=== PATIENT | female | born 1985 | race Caucasian/White ===

== ENCOUNTER 2016-11-15 16:05 | Emergency (ER) | payer OTHER ==
[2016-11-15 16:35] VITALS: BP 152/84; PULSE 93; RESP 18; TEMP 98.4; O2SAT 98
[2016-11-15] MEDS ORDERED: ALBUTEROL 3 ML DEYVIAL IH ONE (16:49)
--- NOTE | 2016-11-15 16:53 | UCPHY ---
[id number]/01/17 16:38 HPI/ROS: CHIEF COMPLAINT: Cough, sore throat HISTORY OF PRESENT ILLNESS: 31-year-old female presents to Urgent Care by private vehicle complaining of cough and sore throat. She is approximately 19 weeks . She has had cold symptoms over last 5 days. She does not feel that she can get a big deep breath of air. She denies any other chest pain. No abdominal pain. No back pain. No known ill exposure or contact. She did get a flu shot this past fall. 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 She is concerned that she may have the flu. REVIEW OF SYSTEMS: Constitutional: No fever, no chills. Eyes: No double or blurry vision. ENT: sore throat. Respiratory: Cough, shortness of breath as above Cardiac: No chest pain. Gastrointestinal: No abdominal pain, vomiting or diarrhea. Genitourinary: No dysuria. Musculoskeletal: No neck or back pain. Skin: No rashes. Neurological: No headache. (Shabana Mendoza) Past Medical/Surgical History: 19 weeks (Shabana Mendoza) Social History: and lives in [place] (Shabana Mendoza) Physical Exam: General Appearance: Alert, no distress. 152/84, 98% on room air, afebrile and nontoxic-appearing. Eyes: Pupils equal and round. Extraocular motions are all intact. ENT: Mouth: Mucous membranes moist. Respiratory: Decreased breath sounds in the bases. No wheezing, rhonchi, or rales, lungs are clear to auscultation. Cardiovascular: Regular rate and rhythm. Gastrointestinal: Abdomen is soft and nontender, no masses, no rebound or guarding, bowel sounds normal. Neurological: Alert and oriented x 3, cranial nerves II through XII grossly intact Skin: Warm and dry, no rashes. Musculoskeletal: Nontender to palpate along the cervical, thoracic or lumbar spine. Neck is supple. Extremities: Full range of motion and no peripheral edema. Psychiatric: Patient is oriented X 3, there is no agitation. (Shabana Mendoza) Constitutional: Initial Vital Signs Temperature (C) 36.9 C 11/15/16 16:32 Heart Rate 93 11/15/16 16:32 Respiratory Rate 18 11/15/16 16:32 Blood Pressure 152/84 H 11/15/16 16:32 O2 Sat (%) 98 11/15/16 16:32 O2 Delivery Mode Room Air Allergies/Adverse Reactions: No Known Allergies Allergy (Unverified 11/15/16 16:32) Home Medications: Medication Instructions Recorded Albuterol [Proventil Inhaler HFA 1 - 2 puffs IH Q4PRN PRN #1 mdi 11/15/16 (*)] Medical Decision Making ED Course/Re-evaluation: 31-year-old female presents with cough and sore throat. Rapid strep test is pending. Patient has been sick for over 5 days. The patient is concerned about possible influenza. 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 She understands that she is not a candidate for Tamiflu since she has been ill for the last 5 days and she has also 19 weeks . Rapid strep test was negative. Influenza was negative. Patient was given albuterol nebulizer and was feeling much better. She will go home with albuterol inhaler. She was instructed to follow up with her OBGYN. She was also instructed to return if she felt short of breath, if she developed chest pain, or if she felt worse in any way. (Shabana Mendoza) Urgent Care PA supervision Physician documentation: The patient was evaluated and managed by the physician financial sales assistant. My co- signature indicates that I have reviewed this chart and I agree with the findings and plan of care as documented. I am the secondary supervising physician. (Davis Adams) Differential Diagnosis: Including but not limited to bronchitis, viral upper respiratory infection, pneumonia, influenza, strep pharyngitis (Shabana Mendoza) - Data Points Medications Given: Discontinued Medications Albuterol (Proventil Neb) 3 ml IH EDNOW ONE Stop: 11/15/16 16:50 Last Admin: 11/15/16 17:03 Dose: 3 ml Departure - Departure Disposition: Home, Routine, Self-Care Clinical Impression: Cough, Pharyngitis, Condition: Good Instructions: Acute Cough (ED), Pharyngitis (ED), (ED) Additional Instructions: Tylenol 100mg every 4-6 hours for pain in your throat. Return if you feel short of breath or if you feel worse in any way. Referrals: SONALI NESS [Primary Care Provider] - As per Instructions Prescriptions: Albuterol [Proventil Inhaler HFA (*)] 1 - 2 puffs IH Q4PRN PRN #1 mdi PRN Reason: Short Of Breath/Dyspnea - PQRS PQRS Measurement: Not applicable (Shabana Mendoza)
== END 2016-11-15 18:18 | disposition home or self-care (01) ==
LOC: CED 16:05
DX: R05 Cough (principal); J02.9 Acute pharyngitis, unspecified; Z33.1 Pregnant state, incidental; Z3A.19 19 weeks gestation of pregnancy
CPT/HCPCS: 87400-PO; 87880-PO; 99214-PO; G0463-PO

== ENCOUNTER 2017-04-17 16:15 | Inpatient (IN) | payer OTHER ==
--- NOTE | 2017-04-17 17:53 | GHP ---
[f rep st] PREOP HISTORY AND PHYSICAL DATE OF ADMISSION: 04/17/2017 ADMITTING DIAGNOSES: Intrauterine at 41 and 2/7 weeks gestation for induction of labor, w ith full cervical ripening, with a Leyva catheter. HISTORY: This patient is a 32-year-old, 1, para 0, with an unknown last menstrual period an d EDC of 04/08/2017, which was set by a 6 week ultrasound. She has had good care at [facility] since registration at 6 weeks gestation, and has had a relatively uncomplicated prena margaret course. Her risk factors include polycystic ovarian syndrome and she had a gastric byp ass in 2014. After dramatic weight loss, she has spontaneously conceived, and not on any medication . She has had normal labs during this , normal ultrasounds during this and has p rogressed to 41 and 1/7 weeks. On 04/16/2017, the patient had a reactive, category 1 nonstress test and an ultrasound, that reveale d an BRODERICK of 11.8. The patient was given options of induction of labor secondary to post dates versu s expectant management for a few more days, and the patient elected to have induction of labor with a Leyva catheter tonight and Pitocin induction in the morning. Currently, she is having mild contractions. She has had good movement. No leakage of fluid. No vaginal bleeding. No other complaints. REVIEW OF SYSTEMS: Negative. PAST OBSTETRICAL HISTORY: None. This is her first . PAST GYNECOLOGICAL HISTORY: She had irregular periods and was diagnosed with polycystic ovarian syn drome and unexplained infertility for 3-1/2 years. The patient had her gastric bypass surgery and d ramatic weight loss, and spontaneously conceived. She has no history of abnormal Paps or STDs. PAST MEDICAL HISTORY: History of obesity. Gastric bypass surgery. Her pre- weight was 17 5 pounds and currently she is 202. She has had a 23 pound weight gain in this . No other past medical problems. She did have a history of malaria after traveling to [place]. PAST SURGICAL HISTORY: Only the gastric bypass surgery, and she had a total weight loss of 160 poun ds. ALLERGIES: No known drug allergies. MEDICATIONS: Include vitamins, vitamin B12, multivitamin with calcium. LABS: She is A positive. Antibody negative. RPR nonreactive. Rubella immune. Hepatitis negative . HIV negative. Cystic fibrosis, SMA, fragile X negative. Pap normal. Gonorrhea and chlamydia no rmal. Verifi was normal. AFP was normal. One hour GTT was normal. GBS was negative. SOCIAL HISTORY: She is . She lives with her . She works as a nanny. She denies tob acco, alcohol, and drug use. FAMILY HISTORY: Her father and her sister have chronic hypertension. Her mother has high cholester ol. Maternal grandfather had lung cancer. Paternal grandfather had prostate cancer. Paternal gran dfather also had a stroke. Mother, sister and brother have depression. Sister has anxiety disorder . PHYSICAL EXAMINATION: VITAL SIGNS: Today, she is afebrile. Vital signs are stable. heart t ones are in the 120s, reactive. Moderate variability. Overall category 1. However, she has had 2 variable decelerations during her monitoring, at that point was a category 2. She is cheikh ev lg 5 minutes. PELVIC: Cervix on exam was 2, 80%, -1 which was a change from exam yesterday, and a Leyva catheter was placed for cervical ripening without incident. The patient tolerated it well. ASSESSMENT: A 32-year-old, 1, para 0, at 41 and 2/7 weeks gestation, for cervical ripening, Leyva catheter, induction of labor on 04/18/2017. PLAN: Will start Pitocin. We will monitor the baby carefully over the next couple hours and decide whether we will keep her as an inpatient overnight or discharge home to return in the morning. /[id number]/MODL
[2017-04-17] MEDS ORDERED: LR 500 ML IV PRN (18:04)
[2017-04-17] MEDS ORDERED: OXYTOCIN/RINGERS LACTATE 1,000 ML IV PRN (18:20)
[2017-04-17] MEDS ORDERED: EPSOM SALT 454 GM TP PRN (18:20)
[2017-04-17] MEDS ORDERED: TERBUTALINE SULFATE 1 MG/ML VIAL IV PRN (18:20)
[2017-04-17] MEDS ORDERED: OLIVE OIL 118 ML BTL MISC PRN (18:20)
[2017-04-17] MEDS ORDERED: IBUPROFEN 600 MG TAB PO PRN (18:20)
[2017-04-17] MEDS ORDERED: OXYTOCIN/RINGERS LACTATE 500 ML IV SCH (18:30)
[2017-04-17 18:37] LABS: % IMMATURE GRANULYOCYTES 0.5 % (0.0-1.1); ABSOLUTE IMMATURE GRANULOCYTES 0.07 10^3/uL (0.00-0.10); ADD DIFF? NO; ADD MORPH? NO; ADD SCAN? NO; ATYPICAL LYMPHOCYTE FLAG 10 (0-99); FRAGMENT RBC FLAG 0 (0-99); HEMOGLOBIN 11.5 g/dL (12.6-16.3); LEFT SHIFT FLG 0 (0-99); LIPEMIA HEMOLYSIS FLAG 80 (0-99); MEAN CELL HEMOGLOBIN CONCENTR. 32.9 g/dL (32.4-36.7); MEAN PLATELET VOLUME 10.9 fL (8.7-11.7); PLATELET CLUMPS FLAG 0 (0-99); PLATELET COUNT 261 10^3/uL (150-400); RED BLOOD CELL COUNT 4.43 10^6/uL (4.18-5.33)
[2017-04-17] MEDS: LR 1,000 ML IV PRN (18:43)
[2017-04-17] MEDS ORDERED: OLIVE OIL 118 ML BTL ONE (20:10)
[2017-04-17] MEDS ORDERED: LIDOCAINE 1% 300 MG/30 ML SDV ONE (20:10)
[2017-04-17] MEDS ORDERED: TERBUTALINE SULFATE 1 MG/ML VIAL ONE (20:11)
[2017-04-17] MEDS ORDERED: AMMONIA AROMATIC 1 EACH AMP IH ONE (20:11)
[2017-04-17] MEDS ORDERED: MISOPROSTOL 200 MCG TAB ONE (20:11)
[2017-04-17] MEDS ORDERED: OXYTOCIN 10 UNIT/ML VIAL ONE (20:11)
[2017-04-18] MEDS ORDERED: LIDOCAINE 1% 300 MG/30 ML SDV ONE (05:56)
[2017-04-18] MEDS ORDERED: OXYTOCIN 10 UNIT/ML VIAL ONE (05:57)
[2017-04-18] MEDS ORDERED: AMMONIA AROMATIC 1 EACH AMP IH ONE (05:57)
[2017-04-18] MEDS ORDERED: OLIVE OIL 118 ML BTL ONE (05:57)
[2017-04-18] MEDS ORDERED: TERBUTALINE SULFATE 1 MG/ML VIAL ONE (05:57)
[2017-04-18] MEDS ORDERED: MISOPROSTOL 200 MCG TAB ONE (05:58)
[2017-04-18] MEDS: LR 1,000 ML IV PRN (07:35)
[2017-04-18] MEDS ORDERED: fentaNYL 2MCG/ML/BUP 0.1% RTU 100 ML BAG EP ONE (11:20)
[2017-04-18] MEDS ORDERED: BUPIVACAINE 0.25% 30 ML SDV ONE (11:21)
[2017-04-18] MEDS ORDERED: PHENYLEPHRINE HCL 100 MCG/ML SYR ONE (11:21)
[2017-04-18] MEDS ORDERED: fentaNYL 100 MCG/2 ML INJ ONE (11:22)
--- NOTE | 2017-04-18 12:22 | OBPROG ---
OBG Labor Progress Note Assessment/Plan: Assessment: Plan: Subjective: pitocin was started this am. cordero came out on its own. srom. patient requested epidural. epidural working well. IUPC and FECG placed to assist in monitoring. occasional variable decelerations. pitocin off to let baby recover. status reassuring now. will restart pitocin and monitor closely. amnioinfusion if variable recur. Objective: 04/17/17 18:05 Patient ABO/Rh A POSITIVE 04/17/17 18:05 - SVE Dilation (cm): 4 Effacement (%): 100 Station: -1 - Procedures Non-surgical Procedures: FSE, IUPC Oxytocin Orders Assessment - Pre-Induction/Augmentation Assessment Gestational Age: 41 week(s) and 2 day(s) ICD10 Worksheet Patient Problems: Problems Problem Status Onset Delivery normal Acute
[2017-04-18] MEDS ORDERED: ONDANSETRON 4 MG/2 ML VIAL IVP PRN (13:49)
[2017-04-18] MEDS ORDERED: PHENYLEPHRINE HCL 100 MCG/ML SYR IVP PRN (13:49)
--- NOTE | 2017-04-18 13:57 | PREANESOB ---
Obstetric Pre-Anesthesia Info - General Info Proposed Procedure: Labor and delivery with pitocin. : 1 Para: 0 WBD: 41 - Info Status: Postmature Monitors: External FHR Baseline (bpm): 120 FHR Pattern: Reassuring - Labor Status Cervical Dilation per last OB SVE: 2 Station per last OB SVE: -1 Pitocin: In Use Indications for Labor Analgesia: Induction of Labor, Pain Control Labor Epidural: Proposed Anesthesia ROS: Prior abdominal surgery. PCOS. Allergies/Adverse Reactions: Allergy/AdvReac Type Severity Reaction Status Date / Time No Known Allergies Allergy Unverified 11/15/16 16:32 Home Medications: Medication Instructions Recorded CALCIUM CARBONATE [CALCIUM] 1 tab PRN 04/17/17 Calcium [HI-FABRICE] 1 tab PO DAILY 04/17/17 Cyanocobalamin (Vitamin B-12) 1 tab PO DAILY 04/17/17 [Vitamin B12] 1 tab PO DAILY 04/17/17 Visit Medications: Generic Name Dose Route Start Last Admin Trade Name Freq PRN Reason Stop Dose Admin Lactated Ringer's 500 mls @ 500 mls/hr 04/17/17 18:04 Lr IV PRN PRN Maternal Hypotension Oxytocin/Lactated Ringer's 500 mls @ 0 mls/hr 04/17/17 18:30 04/18/17 08:04 Pitocin 30 Units/Lr (Premix) IV 10/14/17 18:29 500 mls CONT CELSA Administration Protocol Per Protocol Lactated Ringer's 1,000 mls @ 0 mls/hr 04/17/17 18:20 04/18/17 07:35 Lr IV 10/14/17 18:19 1,000 mls PRN PRN Administration SEE PROTOCOL CONDITIONS Protocol Per Protocol Oxytocin/Lactated Ringer's 1,000 mls @ 150 mls/hr 04/17/17 18:20 Pitocin 20 Units/Lr (Premix) IV PRN PRN Post- bleeding Ibuprofen 600 mg 04/17/17 18:20 Motrin PO 10/14/17 18:19 Q6HRS PRN post , inflammation Magnesium Sulfate 454 gm 04/17/17 18:20 Epsom Salt TP 10/14/17 18:19 Q1H PRN perineal discomfort [place]uda Oil 118 ml 04/17/17 18:20 Sweet Oil MISC 10/14/17 18:19 ONCE PRN preneal massage Terbutaline Sulfate 0.25 mg 04/17/17 18:20 Brethine IV 10/14/17 18:19 ONCE PRN Tachysystole Discontinued Medications Generic Name Dose Route Start Last Admin Trade Name Estrella PRN Reason Stop Dose Admin Ammonia (Aromatic Spirit) Confirm 04/17/17 20:11 Ammonia Aromatic Administered 04/17/17 20:12 Dose 1 each IH .STK-MED ONE Ammonia (Aromatic Spirit) Confirm 04/18/17 05:57 Ammonia Aromatic Administered 04/18/17 05:58 Dose 1 each IH .STK-MED ONE Bupivacaine HCl Confirm 04/18/17 11:21 Sensorcaine 0.25% Sdv Administered 04/18/17 11:22 Dose 30 ml .ROUTE .STK-MED ONE Fentanyl Confirm 04/18/17 11:22 Sublimaze Administered 04/18/17 11:23 Dose 100 mcg .ROUTE .STK-MED ONE Fentanyl/Bupivacaine HCl Confirm 04/18/17 11:20 Fentanyl/Bupivacaine/Ns 2 Mcg/Ml 0.1% (Premix Administered 04/18/17 11:21 Dose 100 ml EP .STK-MED ONE Lidocaine HCl Confirm 04/17/17 20:10 Lidocaine Hcl 1% Administered 04/17/17 20:11 Dose 300 mg .ROUTE .STK-MED ONE Lidocaine HCl Confirm 04/18/17 05:56 Lidocaine Hcl 1% Administered 04/18/17 05:57 Dose 300 mg .ROUTE .STK-MED ONE Misoprostol Confirm 04/17/17 20:11 Cytotec Administered 04/17/17 20:12 Dose 800 mcg .ROUTE .STK-MED ONE Misoprostol Confirm 04/18/17 05:58 Cytotec Administered 04/18/17 05:59 Dose 1,000 mcg .ROUTE .STK-MED ONE Saluda Oil Confirm 04/17/17 20:10 Sweet Oil Administered 04/17/17 20:11 Dose 118 ml .ROUTE .STK-MED ONE Saluda Oil Confirm 04/18/17 05:57 Sweet Oil Administered 04/18/17 05:58 Dose 118 ml .ROUTE .STK-MED ONE Oxytocin Confirm 04/17/17 20:11 Pitocin Administered 04/17/17 20:12 Dose 30 unit .ROUTE .STK-MED ONE Oxytocin Confirm 04/18/17 05:57 Pitocin Administered 04/18/17 05:58 Dose 30 unit .ROUTE .STK-MED ONE Phenylephrine HCl Confirm 04/18/17 11:21 Neosynephrine Administered 04/18/17 11:22 Dose 1,000 mcg .ROUTE .STK-MED ONE Terbutaline Sulfate Confirm 04/17/17 20:11 Brethine Administered 04/17/17 20:12 Dose 1 mg .ROUTE .STK-MED ONE Terbutaline Sulfate Confirm 04/18/17 05:57 Brethine Administered 04/18/17 05:58 Dose 1 mg .ROUTE .STK-MED ONE - Anesthesia History Response to Local Anesthetics: Normal Anesthesia & Operative History: No Prior Problems Family Anesthesia History: Negative - Social History Substance Use/Abuse: Denies - Focused Exam Blood Pressure: 108/60 Heart Rate: 94 Height/Weight (Nursing): Height 165.1 cm Weight 90.265 kg Airway: No abnormalities. Physical Exam: Within normal limits. ASA Status: II Labs: 04/17/17 18:05 Patient ABO/Rh A POSITIVE 04/17/17 18:05 - Plan Anesthetic Plan: CSE Consent Signed and on Chart: Yes Patient/Guardian Understands and Agrees to Plan: Yes Urgent/Emergent Case: Mark mason completed preop but documented later for safe timely pt care
--- NOTE | 2017-04-18 13:58 | POSTANESTH ---
Post Anesthetic Evaluation Cardiovascular Status: Normal, Stable, Similar to Pre-Op Cond Respiratory Status: Normal, Stable, Similar to Pre-op Cond. Level of Consciousness/Mental Status: Can Participate in Eval, Alert and Oriented Pain Control: Adequate, Prn Tx Ordered Nausea/Vomiting Control: Adequate, Prn Tx Ordered Complications Possibly Related to Anesthesia: None Noted
[2017-04-18] MEDS ORDERED: fentaNYL 2MCG/ML/BUP 0.1% RTU 100 ML EP SCH (14:00)
[2017-04-18] MEDS ORDERED: LR 500 ML IV SCH (14:00)
[2017-04-18] MEDS ORDERED: SIMETHICONE 80 MG TAB CHEW PO PRN (14:33)
[2017-04-18] MEDS ORDERED: HYDROCORTISONE 0.5% CREAM TP PRN (14:33)
[2017-04-18] MEDS ORDERED: HYDROCODONE/APAP 5/325 TAB PO PRN (14:33)
--- NOTE | 2017-04-18 14:39 | OBDEL ---
Info Type: Vaginal GBS+: No Indications for Delivery: Postterm Favorable Cervix Vaginal Delivery - Labor and Delivery Onset of Contractions Date: 04/18/17 Onset of Contractions Time: 09:00 Onset of Contractions Type: Induced Rupture of Membranes Date: 04/18/17 Rupture of Membranes Time: 10:53 Rupture of Membranes Type: Spontaneous Amniotic Fluid Color: Clear Dilation Complete Date: 04/18/17 Dilation Complete Time: 13:24 Placenta Delivery Date: 04/18/17 Placenta Delivery Time: 14:12 Total Hours of Labor: 5 Non-surgical Procedures: FSE, IUPC Laceration: 1st Degree Repair: 3-0 Vaginal Sponge Count Correct: Yes Vaginal Needle Count Correct: Yes Vaginal Sweep Performed: Yes EBL: 300 Delivery Events: Nuchal Cord - Medications Labor Augmentation/Induction Methods Used: Pitocin Labor Augmentation/Induction Indication: Post Dates [place] Data [place] Delivery Date: 04/18/17 Delivery Time: 14:08 Sex of Infant: Female Score (1 Min): 8 Score (5 Min): 9 ICD10 Worksheet Patient Problems: Problems Problem Status Onset Delivery normal Acute
[2017-04-18] MEDS: ACETAMINOPHEN 325 MG TAB PO PRN ×2 (14:59→22:14)
--- NOTE | 2017-04-19 07:41 | OBPP ---
Progress Note Assessment/Plan: Assessment: 1) s/p PPD # 1 - pt is stable 2) Anemia - pt is asymptomatic Plan: Continue routine pp care Encourage ambulation Cont iron consult today Plan for d/c home in am 04/20/17 04/19/17 07:41 Subjective: Pt seen and examined. Doing well, no complaints. Denies any cramping, just sore down below. Pt is OOB, [place] reg diet, voiding and passing flatus. No BM. Moderate lochia. BF with some difficulty, with latch. Objective: 04/17/17 18:05 Patient ABO/Rh A POSITIVE 04/17/17 18:05 Temp Pulse Resp BP Pulse Ox 36.6 C 92 18 96/66 L 96 04/18/17 20:00 04/18/17 20:00 04/18/17 20:00 04/18/17 20:00 04/18/17 20:00 Uterine Position/Fundal Height: Umbilicus -2 Uterine Tone: Firm Physical Exam - Physical Exam General Appearance: WD/WN, alert, no apparent distress Respiratory: lungs clear, normal breath sounds Cardiac/Chest: regular rate, rhythm Abdomen: normal bowel sounds, non-tender, soft, flatus (+) Extremities: non-tender, normal inspection Skin: normal color, warm/dry Neuro/Psych: alert, normal mood/affect, oriented x 3
[2017-04-19] MEDS: ACETAMINOPHEN 325 MG TAB PO PRN ×3 (09:01→20:33)
[2017-04-19] MEDS: DOCUSATE SODIUM 100 MG CAP PO PRN (20:33)
[2017-04-20] MEDS: ACETAMINOPHEN 325 MG TAB PO PRN ×2 (04:01→14:13)
[2017-04-20 09:04] VITALS: BP 108/69; PULSE 73; RESP 16; TEMP 98.3; O2SAT 96
--- NOTE | 2017-04-20 10:08 | OBGCSDC ---
General Delivery Information - General Info : 1 Para: 1 Abortions: 0 Delivery Physician/CNM: Maritza Hernandez Admission Date: 04/17/17 Labs: Patient ABO/Rh A POSITIVE 04/17/17 18:05 Hct 35.0 % (38.0-47.0) L 04/17/17 18:05 Vaginal - Diagnosis Labor: Induced Rupture of Membranes Type: Spontaneous Amniotic Fluid Color: Clear Laceration: 1st Degree Repair: 3-0 Delivery Events: Nuchal Cord - Operations/Procedures Non-surgical Procedures: FSE, IUPC L&D Analgesia/Anesthesia Type: Epidural - Hospital Course Antepartum: h/o PCOS, H/o gastric bypass, admitted 41 weeks IOL, Intrapartum: cordero placed 04/17/15, pt admitted due to variables . am 7, 3 cm, pitocin , epidural, SROM rapid progress, pushed well : Good breast feeding, tolerating Ibuprofen, iron secondary to anemia - Delivery Non-surgical Procedures: FSE, IUPC L&D Analgesia/Anesthesia Type: Epidural [place] Data [place] Delivery Date: 04/18/17 Delivery Time: 14:08 ALESSANDRA: 04/08/17 Gestational Age: 41 week(s) and 5 day(s) Sex of Infant: Female [place] Weight (gm): 3316.894 g Score (1 Min): 8 Score (5 Min): 9 Discharge Information - Discharge Information Discharge Medications: Ibuprofen Condition: Good Instruction/Follow Up: Four Weeks, Six Weeks Discharge Physician/CNM: Rosita Rojas
--- NOTE | 2017-04-20 10:10 | OBPP ---
Progress Note Assessment/Plan: Assessment: 32 y/o PPD #2 s/p IOL secondary to post dates Plan: D/c home today. Follow- up @ [facility] 4 and 6 weeks. 04/20/17 10:09 Subjective: Pt is doing well, min pain controlled with Ibuprofen. Breast feeding well. D/ c home Objective: 04/17/17 18:05 Patient ABO/Rh A POSITIVE 04/17/17 18:05 Temp Pulse Resp BP Pulse Ox 36.8 C 73 16 108/69 96 04/20/17 08:00 04/20/17 08:00 04/20/17 08:00 04/20/17 08:00 04/20/17 08:00 Uterine Position/Fundal Height: Umbilicus -2 Uterine Tone: Firm Physical Exam - Physical Exam General Appearance: WD/WN, alert, no apparent distress Neck: non-tender, full range of motion, supple Respiratory: chest non-tender, lungs clear, normal breath sounds Cardiac/Chest: regular rate, rhythm Abdomen: normal bowel sounds Extremities: swelling (no), Ledy's sign (neg)
[2017-04-20] MEDS: DOCUSATE SODIUM 100 MG CAP PO PRN (14:20)
== END 2017-04-20 14:00 | disposition home or self-care (01) | DRG 775 ==
LOC: FLD 16:15 → FOB 04-18 17:29
PROVIDERS: ADMIT Obstetrics & Gynecology; ATTEND Obstetrics & Gynecology
PROC: 0HQ9XZZ Repair Perineum Skin, External Approach (ICD-10-PCS; principal; 2017-04-18)
PROC: 3E033VJ Introduction of Other Hormone into Peripheral Vein, Percutaneous Approach (ICD-10-PCS; principal; 2017-04-18)
PROC: 0U7C7ZZ Dilation of Cervix, Via Natural or Artificial Opening (ICD-10-PCS; principal; 2017-04-18)
PROC: 10E0XZZ Delivery of Products of Conception, External Approach (ICD-10-PCS; principal; 2017-04-18)
DX: O48.0 Post-term pregnancy (principal); Z37.0 Single live birth; O69.82X0 Labor and delivery complicated by other cord entanglement, without compression, not applicable or unspecified; Z3A.41 41 weeks gestation of pregnancy; O70.0 First degree perineal laceration during delivery; O99.03 Anemia complicating the puerperium; D64.9 Anemia, unspecified
CPT/HCPCS: J2370; J2590; J3010; J3105

== ENCOUNTER 2017-10-07 21:22 | Emergency (ER) | payer OTHER ==
[2017-10-07 21:28] VITALS: BP 147/111; PULSE 92; RESP 18; TEMP 98.1; O2SAT 97
[2017-10-07] MEDS ORDERED: CIPROFLOXACIN 0.3% DROPS PREPACK OPHT.BTL TAKEHOME ONE (21:43)
[2017-10-07] MEDS ORDERED: CIPROFLOXACIN HCL/DEXAMETH 7.5 ML OTIC DROPS ONE (21:44)
--- NOTE | 2017-10-07 21:48 | EDPHY ---
H & P Time Seen by Provider: 10/07/17 21:31 HPI/ROS: CHIEF COMPLAINT: Red eye History by patient HISTORY OF PRESENT ILLNESS: 32-year-old woman presents complaining of redness and sticky drainage and pain in her left eye time several hours. Patient does wear contact lenses. She has had several days of subjective fevers, body aches , nasal congestion, diarrhea and general malaise. She denies cough or sore throat. She was on amoxicillin for a tooth infection which she finished taking 1 week ago. The eye symptoms just began tonight. She feels that her vision is slightly blurry because it feels like she has something in her eyes. REVIEW OF SYSTEMS: As in HPI, and all other systems reviewed and are negative Smoking Status: Never smoked Physical Exam: General Appearance: Alert and no distress. Head: normocephalic, atraumatic, no sinus tenderness Eyes: Pupils equal and round , extraocular movements intact without pain, positive left conjunctiva erythema with scant Purulent drainage, fluorescein stain negative, no evidence of corneal ulcer OP: mucus membranes moist, no tonsillar enlargement, no exudates Neck: no meningismus, no cervical nodes, no submandibular nodes Respiratory: Chest is nontender, lungs are clear to auscultation. Cardiac: regular rate and rhythm. Gastrointestinal: Abdomen is soft and nontender, no masses, bowel sounds normal. Musculoskeletal: Neck is supple and nontender. Extremities have full range of motion and are nontender. Skin: No rashes or lesions. Constitutional: Initial Vital Signs Temperature (C) 36.7 C 10/07/17 21:27 Heart Rate 92 10/07/17 21:27 Respiratory Rate 18 10/07/17 21:27 Blood Pressure 147/111 H 10/07/17 21:27 O2 Sat (%) 97 10/07/17 21:27 O2 Delivery Mode Room Air Allergies/Adverse Reactions: No Known Allergies Allergy (Unverified 11/15/16 16:32) Home Medications: Medication Instructions Recorded CALCIUM CARBONATE [CALCIUM] 1 tab PRN 04/17/17 Calcium [HI-FABRICE] 1 tab PO DAILY 04/17/17 Cyanocobalamin (Vitamin B-12) 1 tab PO DAILY 04/17/17 [Vitamin B12] 1 tab PO DAILY 04/17/17 MDM/Departure - [facility] ED Course/Re-evaluation: 30-year-old woman presents with left painful red eye drainage and she wears contact lenses. Exam is consistent with conjunctivitis. Because of her contact lens wear she will be started on Cipro eyedrops. Her other symptoms are consistent with an acute viral illness. There is no evidence of significant dehydration or systemic toxicity. - Depart Disposition: Home, Routine, Self-Care Clinical Impression: Acute conjunctivitis of left eye Qualifiers: Acute conjunctivitis type: unspecified Qualified Code(s): H10.32 - Unspecified acute conjunctivitis, left eye Diarrhea Qualifiers: Diarrhea type: unspecified type Qualified Code(s): R19.7 - Diarrhea, unspecified Condition: Good Instructions: Conjunctivitis (ED) Additional Instructions: You were seen by Dr. Mehreen Hill today. Use eyedrops, 1-2 drops every 2 hr for the next 2 days and then every 4 hr for the next 3 days. Do not wear contact lenses until all symptoms have completely resolved. Return for any worsening or new concerns. Referrals: SONALI NESS [Primary Care Provider] - As per Instructions
== END 2017-10-07 21:56 | disposition home or self-care (01) ==
LOC: CED 21:22
DX: H10.32 Unspecified acute conjunctivitis, left eye (principal)